=== PATIENT | male | born 1945 | race Asian ===

== ENCOUNTER 2016-06-24 06:43 | Day surgery (SDC) | payer MEDICARE, BC ==
[~2016-06-24 06:43] MED LIST: Dextrose 5%-0.45% NaCl 1,000 ML IV SCH; Midazolam 1 MG/ML 2 ML SDV ONE; Sodium Chloride 0.9% 10 ML Syringe FLUSH PRN; fentaNYL 100 MCG/2 ML SDV ONE
[2016-06-24] MEDS ORDERED: fentaNYL 100 MCG/2 ML SDV IV ONE ×3 (07:59→12:31)
[2016-06-24] MEDS ORDERED: Midazolam 1 MG/ML 2 ML SDV IV ONE ×5 (08:00→12:31)
--- NOTE | 2016-06-24 09:20 | OR ---
DATE: 06/24/2016 PROCEDURE: Total colonoscopy, NBI, and multiple cold snare polypectomies. INSTRUMENT USED: PCF-H180AL Olympus video colonoscope. PREMEDICATIONS: Fentanyl 100 mcg intravenous, Versed 3.5 mg intravenous. Nasal O2 cannula. The procedure was done under pulse oximetry, BP recording, and cartridge feeder. INDICATION: Screening colonoscopic examination is done for detection of any polypoid lesions and removal, endoscopic hemostasis therapy if needed. DESCRIPTION OF PROCEDURE: Initial rectal exam was unremarkable. Rigid anoscopy was normal. The colonoscope was passed with ease. Scattered diverticula were noted along with some deformity in the left colon. The scope was passed with ease up to the ileocecal area, photographs were taken of the normal-appearing cecum, identified by landmarks of appendiceal orifice and double-bulged ileocecal folds. The examination was compromised in quite a few areas due to the presence of solid fecal material that could not be aspirated. No bleeding was noted from any of the visualized areas at the commencement of the examination. No stricture. No vascular ectasia. No large isolated ulcerations seen. No evidence of diffuse inflammatory bowel disease in the form of friability, contact bleeding, or ulcerations. Few diverticula were noted in the right colon. A 3-5 mm sized benign-appearing polyps were noted, 2 in number at the proximal ascending colon, 3 in number at the distal ascending colon, 2 in number proximal transverse colon, photographs were taken of the ascending colon. Polyp, NBI views were obtained, cold snare polypectomy was done, the tissues were retrieved and sent for histopathology. Probing the proximal sides of folds and flexures, clearing of the fecal material. The scope was withdrawn. No bleeding was noted from any of the visualized areas at the completion of examination. IMPRESSION: 1. Diverticulosis. 2. Multiple colonic polyps. The patient tolerated the procedure well. [facility] /[id number]
[2016-06-24 10:24] VITALS: BP 130/58
--- NOTE | 2016-06-24 10:29 | LETTER ---
06/24/2016 Ryland Olsen MD [address] [address] RE: GANESHDONALDKUMAR Pascal : [address] Olsen: Mr. Kumar Casillasemircuauhtemoc had screening colonoscopic examination done today and he tolerated the procedure well. I herewith send a copy of the endoscopy note and photographs for your review. Thank you. Sincerely, [facility] /[id number]
== END 2016-06-24 10:35 | disposition home or self-care (01) ==
LOC: DL.ENDO 06:43
PROVIDERS: ATTEND Internal Medicine Gastroenterology
DX: Z12.11 Encounter for screening for malignant neoplasm of colon (principal); D12.2 Benign neoplasm of ascending colon; D12.3 Benign neoplasm of transverse colon; K57.30 Diverticulosis of large intestine without perforation or abscess without bleeding; E66.9 Obesity, unspecified; Z87.891 Personal history of nicotine dependence; E11.22 Type 2 diabetes mellitus with diabetic chronic kidney disease; I12.9 Hypertensive chronic kidney disease with stage 1 through stage 4 chronic kidney disease, or unspecified chronic kidney disease; N18.9 Chronic kidney disease, unspecified; D63.1 Anemia in chronic kidney disease; Z98.890 Other specified postprocedural states; E79.0 Hyperuricemia without signs of inflammatory arthritis and tophaceous disease; E78.00 Pure hypercholesterolemia, unspecified; Z99.2 Dependence on renal dialysis
CPT/HCPCS: 45385; J2250; J3010; J7042; 88305

== ENCOUNTER 2016-09-30 06:53 | Day surgery (SDC) | payer MEDICARE, BC ==
[2016-09-30] MEDS ORDERED: fentaNYL 100 MCG/2 ML SDV IV ONE ×3 (08:24→11:25)
[2016-09-30] MEDS ORDERED: Midazolam 1 MG/ML 2 ML SDV IV ONE ×6 (08:30→11:25)
[2016-09-30 10:09] VITALS: BP 142/62
--- NOTE | 2016-09-30 10:11 | OR ---
DATE: 09/30/2016 PROCEDURE: Total colonoscopy. INSTRUMENT USED: PCF-H180 Olympus video colonoscope. PREMEDICATIONS: Fentanyl 100 mcg intravenous, Versed 3.5 mg intravenous. Nasal O2 cannula. The procedure was done under pulse oximetry, BP recording, and cardiac/vascular sonographer. INDICATION: The patient with previous inadequate study due to the presence of large amount of stool material and polyps removal. Colonoscopic examination is done after 2-day bowel preparation for detection of any malignant lesions and biopsies as indicated, patient candidate for kidney transplantation, endoscopic hemostasis therapy if needed. DESCRIPTION OF PROCEDURE: Initial rectal exam was unremarkable. Rigid anoscopy showed small internal hemorrhoids without bleeding from them. The colonoscope was passed with ease. Scattered diverticula were noted in the colon. The scope was passed with ease up to the ileocecal area, photographs were taken of the normal-appearing cecum, identified by double-bulged ileocecal folds. No bleeding was noted from any of the visualized areas at the commencement of the examination. No stricture. No vascular ectasia. No large isolated ulcerations seen. No evidence of diffuse inflammatory bowel disease in the form of friability, contact bleeding, or ulcerations. Diminutive polyps, couple of them were noted in the proximal sigmoid colon, and a 5 mm sized benign-appearing polyp was noted in the proximal descending colon, polypectomy not done as patient being on Plavix at this time. No bleeding was noted from any of the visualized areas at the completion of examination. IMPRESSION: 1. Internal hemorrhoids. 2. Diverticulosis. 3. Colonic polyps. The patient tolerated the procedure well. [facility] /[id number]
--- NOTE | 2016-09-30 11:47 | LETTER ---
09/30/2016 Ryland Olsen MD [facility] [address] [address] RE: KUMAR BRASWELL : [address] Olsen: Mr. Kumar Braswell had colonoscopic examination done this morning and he tolerated the procedure well. I herewith send a copy of the endoscopy note and photographs for your review. Thank you. Sincerely, [facility] /[id number]
== END 2016-09-30 10:20 | disposition home or self-care (01) ==
LOC: DL.ENDO 06:53
PROVIDERS: ATTEND Internal Medicine Gastroenterology
DX: Z86.010 Personal history of colon polyps (principal); K57.30 Diverticulosis of large intestine without perforation or abscess without bleeding; K63.5 Polyp of colon; K64.8 Other hemorrhoids; E66.9 Obesity, unspecified; E11.22 Type 2 diabetes mellitus with diabetic chronic kidney disease; I12.9 Hypertensive chronic kidney disease with stage 1 through stage 4 chronic kidney disease, or unspecified chronic kidney disease; N18.9 Chronic kidney disease, unspecified; D63.1 Anemia in chronic kidney disease; E79.0 Hyperuricemia without signs of inflammatory arthritis and tophaceous disease; Z98.890 Other specified postprocedural states; Z87.891 Personal history of nicotine dependence; Z99.2 Dependence on renal dialysis; Z79.82 Long term (current) use of aspirin
CPT/HCPCS: 45378; J2250; J3010; J7042

== ENCOUNTER 2023-04-16 09:29 | Emergency (ER) | payer MEDICARE, BC ==
[2023-04-16] MEDS ORDERED: Sodium Chloride 0.9% 10 ML Syringe FLUSH PRN (10:08)
[2023-04-16 10:23] LABS: HEMATOCRIT 38.4 % (40.0-54.0); HEMOGLOBIN 12.3 g/dL (14.0-18.0); MEAN CORPUSCULAR HEMOGLOBIN 29.3 pg (27.0-34.0); MEAN CORPUSCULAR VOLUME 91.4 fL (80-100); PLATELET COUNT,PLT 246 10^3/uL (150-450); WHITE BLOOD CELL COUNT,WBC 10.3 10^3/uL (5.0-10.0)
[2023-04-16 10:27] LABS: EOSINOPHILS PERCENT AUTO 0.8 % (1.0-3.0); LYMPHOCYTES PERCENT AUTO 17.9 % (20.5-50.1); MONOCYTES PERCENT AUTO 8.1 % (2-8)
[2023-04-16 10:28] LABS: BASOPHILS PERCENT AUTO 0.2 % (0.0-1.0)
[2023-04-16 10:40] LABS: PROTHROMBIN TIME 10.5 SEC (9.0-12.0)
[2023-04-16 10:49] LABS: A/G RATIO 1.2; ALANINE AMINOTRANSFERASE,ALT 29 U/L (16-63); ALBUMIN 3.5 g/dL (3.4-5.0); ALKALINE PHOSPHATASE 50 U/L (46-116); ANION GAP 13.3 mEq/L (7-13); ASPARTATE AMNIOTRANSFERASE,AST 14 U/L (15-37); BILIRUBIN TOTAL 1.3 mg/dL (0.2-1.0); BLOOD UREA NITROGEN,BUN 28 mg/dL (7-18); BUN/CREATININE RATIO 17.8 (No establ ref range); CALCIUM 9.3 mg/dL (8.5-10.1); CARBON DIOXIDE,CO2 29 mmol/L (21-32); CHLORIDE,CL 101 mmol/L (98-107); CREATININE 1.57 mg/dL (0.70-1.30); ESTIMATED GFR 45 mL/min (>=60); GLUCOSE RANDOM 259 mg/dL (70-99); POTASSIUM,K 4.3 mmol/L (3.5-5.1); PROTEIN TOTAL,TP 6.3 g/dL (6.4-8.2); SODIUM,NA 139 mmol/L (136-145)
[2023-04-16 10:50] LABS: SEG NEUTROPHILS PERCENT MAN 81 % (42-75)
[2023-04-16 10:51] LABS: EOSINOPHILS PERCENT MAN 1 % (1-3); LYMPHOCYTES PERCENT MAN 10 % (20-50); MONOCYTES PERCENT MAN 8 % (2-8)
[2023-04-16 12:22] VITALS: BP 171/71; PULSE 70
== END 2023-04-16 12:10 | disposition home or self-care (01) ==
LOC: DL.ED 09:29 → MERGE 09:29 → DL.ED 12:10
DX: S31.000A Unspecified open wound of lower back and pelvis without penetration into retroperitoneum, initial encounter (principal); Z79.82 Long term (current) use of aspirin; Z79.899 Other long term (current) drug therapy; Z79.02 Long term (current) use of antithrombotics/antiplatelets; X58.XXXA Exposure to other specified factors, initial encounter
CPT/HCPCS: 12001; 36415; 80053; 85025; 85610; 99283; 99284